=== PATIENT | female | born 1935 | race Caucasian/White ===

== ENCOUNTER 2017-01-09 06:01 | Day surgery (SDC) | payer MEDICARE ==
[~2017-01-09] VITALS: Ht 177.8 cm; Wt 109.5 kg
[~2017-01-09 06:01] MED LIST: ALLO100T PO; FURO20 PO; GABA100C4 PO; MEDR10TA7 PO; PARI1 PO; PRIN5TAB PO; VITA200017 PO; WARF1TAB PO; [UNRECOGNIZED DRUG - CODE] PO
[2017-01-09] MEDS ORDERED: VANCOMYCIN 1000 MG/NS 250 ML IV SCH ×2 (06:30)
[2017-01-09] MEDS ORDERED: LACTATED RINGER'S 1000 ML IV PRN (06:30)
[2017-01-09] MEDS ORDERED: Hold AM Insulin & AM Hypoglycemic medications in diabetic patients PRN (06:30)
[2017-01-09] MEDS ORDERED: NO Heparin, Lovenox, Coumadin at least 12 hours prior to procedure. PRN (06:30)
[2017-01-09] MEDS ORDERED: LORazepam 1 MG TAB SL SCH (06:30)
[2017-01-09] MEDS ORDERED: CHLORHEXIDINE GLUCONATE 2 % 1 PACK (2 CLOTHS) TOPICAL SCH (06:30)
[2017-01-09] MEDS ORDERED: POVIDONE IODINE 5% (ANTISEPSIS KIT) 4 APPLICATIONS EACH NARE SCH (06:30)
[2017-01-09] MEDS ORDERED: POVIDONE IODINE 5% (ANTISEPSIS KIT) 4 APPLICATIONS EACH NARE PRN (06:30)
[2017-01-09] MEDS ORDERED: NS 1000 ML IV SCH (06:30)
[2017-01-09] MEDS ORDERED: MUPIROCIN 2% OINT 1 APPLIC/GM SYR NASAL SCH (06:30)
[2017-01-09] MEDS ORDERED: SODIUM CHLORID 0.9% 500 ML IV PRN (06:30)
[2017-01-09] MEDS ORDERED: CHLORHEXIDINE GLUCONATE 2 % 1 PACK (2 CLOTHS) TOPICAL PRN (06:30)
[2017-01-09] MEDS ORDERED: ceFAZolin 2 GM PREMIX 50 ML IV SCH (06:30)
[2017-01-09] MEDS ORDERED: METOPROLOL TARTRATE 25 MG TAB PO PRN (06:30)
[2017-01-09] MEDS ORDERED: LISI10TA3 PO (06:34)
[2017-01-09] MEDS ORDERED: WARF4TAB52 PO (06:34)
[2017-01-09] MEDS ORDERED: GABA100C4 PO (06:34)
[2017-01-09] MEDS ORDERED: ALLO100T PO (06:34)
[2017-01-09] MEDS ORDERED: PROC20005 SQ (06:34)
[2017-01-09] MEDS ORDERED: FURO20TA PO (06:34)
[2017-01-09 06:39] VITALS: BP 127/52; PULSE 57; RESP 18; TEMP 97.5; O2SAT 95
[2017-01-09 06:55] LABS: AUTOMATED NEUTROPHIL # 3.2 TH/MM3 (1.8-7.7); BASOPHIL % 0.4 % (0.0-2.0); EOSINOPHIL # 0.3 TH/MM3 (0-0.4); EOSINOPHIL % 4.2 % (0.0-4.0); HEMO FLAGS DIFF FINAL; LYMPHOCYTE # 3.4 TH/MM3 (1.0-4.8); MEAN CELL VOLUME 113.7 FL (80.0-100.0); MEAN CORPUSCULAR HEMOGLOBIN 36.7 PG (27.0-34.0); MEAN CORPUSCULAR HGB CONC 32.3 % (32.0-36.0); MONO % 4.8 % (0.0-8.0); NEUT % 43.6 % (16.0-70.0); PLATELET COUNT 157 TH/MM3 (150-450); RED BLOOD COUNT 2.19 MIL/MM3 (4.00-5.30); RED CELL DISTRIBUTION WIDTH 17.6 % (11.6-17.2); WHITE BLOOD COUNT 7.3 TH/MM3 (4.0-11.0)
[2017-01-09 07:09] LABS: BICARBONATE 23.1 MEQ/L (21.0-32.0)
[2017-01-09 07:10] LABS: APTT (PATIENT) 53.9 SEC (24.3-30.1); PROTHROMBIN TIME - PATIENT 34.8 SEC (9.8-11.6)
[2017-01-09] MEDS ORDERED: LIDOCAINE HCL 2% 50 ML VIAL ONE (08:25)
[2017-01-09] MEDS ORDERED: VANCOMYCIN 500 MG VIAL ONE (08:25)
--- NOTE | 2017-01-09 09:08 | PD.CARD ---
PPM GENERATOR REPLACEMENT PROCEDURE DATE: Jan 09, 2017 PPM GENERATOR REPLACEMENT PROC PROCEDURE PERFORMED Permanent pacemaker removal, permanent pacemaker replacement, pocket revision. Ms. Hull is a 81 -year-old female with history of AV block, bradycardia, atrial fibrillation, PPM EOL who undergo generator replacement. The risks, the nature and the benefit of the procedure were clearly stated to her. The risks include pneumothorax, cardiac perforation, stroke and even . The patient understood and agreed to proceed. PROCEDURE After written informed consent was obtained, the patient was brought to the EP lab where was prepped and draped in the sterile fashion. Conscious sedation was initiated using intravenous Versed and introducer intravenous fentanyl. Once sedation was verified, the left infraclavicular area over the generator was anesthetized with 2% Xylocaine. Using a #11 scalpel, a 3 centimeter incision was made over the existing generator. Dissection was then taken down to deep fascial layer using Bovie cautery and blunt dissection. Once exposed, the generator was removed from the pocket. The pocket was expanded. Scar tissue was removed around the leads. Then, the leads were disconnected and tested. At that point, the pocket was copiously irrigated using antibiotic solution. The leads were connected to the new generator and placed into the pocket. The pacemaker was interrogated. I did proceed with wound closure. The deep fascial layer was approximated with 2-0 Vicryl suture in a continuous fashion. The subcutaneous layer was approximated with 2-0 Vicryl suture in a continuous fashion. Dermabond adhesive was applied to the wound followed by a sterile pressure dressing. There was no complication. The patient tolerated procedure. Blood loss minimal. EXPLANTED HARDWARE The explanted permanent pacemaker is a [employer]. Model # 5826 serial number [id number]. For information about the existing leads, please refer to previous dictation. IMPLANTED HARDWARE The implanted permanent pacemaker is a [employer] model number FW3110, serial number [id number]. THRESHOLDS The right atrial pacing threshold in bipolar mode cannot be measured. Patient in atrial fibrillation. Lead impedance 330 ohms and fib wave at 0.8 millivolts. The right ventricular pacing threshold in bipolar mode was 1.2 volts at 0.5 milliseconds. Lead impedance 580 ohms. R wave at 1.2mv SETTINGS The device is set in a DDD6. Upper limit 120 beats per minute. Hysteresis and mode switch are on. CONCLUSIONS Successful permanent pacemaker removal, permanent pacemaker implantation, pocket revision. COMMENT AND RECOMMENDATIONS The patient will be transferred to the telemetry unit. He will be observed. The patient will be discharged home later on today. Esa Yan MD Jan 09, 2017 09:08
[2017-01-09] MEDS ORDERED: ACET1TAB94 PO (09:12)
[2017-01-09] MEDS ORDERED: CEPH-460 PO ×2 (09:12→09:24)
--- NOTE | 2017-01-09 09:13 | CATHPROC ---
[employer] HIS Report Study Information Study Number Admission Scheduled Start Study Start [id number] Jan 09 2017 6:01AM 01/09/2017 Jan 09 2017 8:38AM [place] [facility] Cardiac Pacer/ICD Admit Source Facility Department Other [facility] - Stable Cleaner Physician and Clinical Staff Initial Esa Young Him Assistant Lobo Sheehan,IKER Other Anesthesia, MORTGAGE ASSISTANT Recorder Jazz Saavedra,IKER Scrub Giuliano Hollins RCIS(BS) Equipment Time Talent Engineer Description Size Mfg Part Number Used/Scraped DERMABOND, ADHESIVE SKIN [id number] 08:42 CORDIS/PACER * Used GLUE MINI *[id number] 08:42 MEDLINE IND[employer]ES SUTURE, STRIP PLUS 1/2" * Used *[id number] 08:42 MEDLINE PACER CARDOSO, LIMB * 2530 *[id number] Used [id number] 08:42 MEDLINE PACER PACK, PACER CUSTOM * Used *[id number] 08:55 Needle Sponge Count 2 2 Used 08:55 Needle Sponge Count 2 22 Used 08:55 Needle Sponge Count 20 200 Used SUTURE, 0 ETHIBOND [CT1] (CX21D), 8pk SUTURE, 2-0 VICRYL [CT1] (MEO001X) SUTURE, 2-0 VICRYL [CT1] ([id number]) [id number] 08:42 [employer],WARM AIR CCL * Used *[id number] 09:01 [facility] [employer] PACEMAKER, ASSURITY DR CHAPPELL DDDR [id number] Used [facility] PAD, ELECTROSURGICAL 08:42 * [id number] *[id number] Used [employer]OUND[employer] ORANGE [id number] 08:42 [employer]. / * Used *[id number] Equipment Model, Serial, Lot Number and Expiration Data Description Model Number Serial Number Lot Number Expiration Date PACEMAKER, ASSURITY DR CHAPPELL [id number] 06-10-2018 History: Allergies Allergy Reaction adhesive Rash Labs Hgb (g/dl) Hct (%) WBC (l/cumm) Platelets (thousands) 11.60-17.00 35.00-51.00 4.00-11.00 150.00-450.00 8.1 25 7.3 157 Glucose (mg/dl) BUN (mg/dl) Creatinine (mg/dl) BUN:Creatinine (1:x) 74.00-106.00 7.00-18.00 0.50-1.30 10.00-20.00 114 86 3.8 22.6 Na (meq/l) K (meq/l) 136.00-145.00 3.50-5.10 144 4 INR (PTT:PT) 0.90-1.10 3 CPK-MB (ng/ML) 0.50-3.60 Not Drawn Medication Medication Total Dose (Bolus/Oral) Medication Total Dosage/Unit 2% XYLOCAINE 50 mL Medications (Bolus/Oral) Medication Time Given Dosage/Unit Administered By Reason 2% XYLOCAINE 01/09/2017 8:55:59 AM 50 mL Esa Yan 50 mL 2% XYLOCAINE given in lab by Esa Yan in Left shoulder via Subcutaneous. Ordered by Esa Yan. left upper chest Medication (Drip) Medication Time Given Dosage/Unit Concentration/Unit Diluent (ml) Solution ANCEF 01/09/2017 8:32:45 AM 2 g 2 g ANCEF given in lab by Anesthesia, MORTGAGE ASSISTANT in Right Hand via Peripheral IV. Ordered by Esa Yan. VANCOMYCIN DRIP 01/09/2017 8:32:17 AM 1 g 1 g VANCOMYCIN DRIP given in lab by Anesthesia, MORTGAGE ASSISTANT in Right Hand via Peripheral IV. Ordered by Esa Lopez. Initial Case Assessment Cardiovascular HR Rhythm NIBP Chest Pain 57 sr 127/52 0 Edema Present Skin color Skin None Normal Warm Dry Circulatory - Right Pulses Dorsalis Pedis 1 Scale (0,1,2,3,4,d) Circulatory - Left Pulses Dorsalis Pedis 1 Scale (0,1,2,3,4,d) Neurological State Oriented to time-place- Alert Moves all extremities person Respiration - General Respiration Rate SpO2 (%) (B/min) 20 95 Final Case Assessment Cardiovascular HR Rhythm NIBP Chest Pain 69 PACED 90/50 0 Edema Present Skin color Skin None Normal Warm Dry Circulatory - Right Pulses Dorsalis Pedis 1 Scale (0,1,2,3,4,d) Circulatory - Left Pulses Dorsalis Pedis 1 Scale (0,1,2,3,4,d) Neurological State Oriented to time-place- Alert Moves all extremities person Respiration - General Respiration Rate SpO2 (%) O2 (lpm) (B/min) 18 98 4 Chronological Log Time Study Chronological Log 8:20:00 Patient arrived via Bed. 8:20:00 Patient Name, D.O.B, / Armband Verified By R.N. 8:25:00 Anesthesia at bedside. Assumes care of patient. See records for all meds and vitals during procedure 8:32:17 1 g VANCOMYCIN DRIP given in lab by Anesthesia, MORTGAGE ASSISTANT in Right Hand via Peripheral IV. Order ed by Esa Yan. 8:32:45 2 g ANCEF given in lab by Anesthesia, MORTGAGE ASSISTANT in Right Hand via Peripheral IV. Ordered by Esa Lopez. 8:38:43 Verbal Stimulation=2 Physical Stimulation=2 Airway=2 Respiration=2 TOTAL=8. (0=absent, 1=li mited, 2=present) 8:42:42 Patient has been NPO for More than 6Hrs. 8:42:44 Skin Breakdown- right hip wound covered with dressing, dressing clean dry and intact. right have bruise 8:43:22 Patient Warmer Placed on the Table. 8:43:23 Disposable Defibrillator Pads Placed On Patient. 8:43:24 Bimal Prominences Protected 8:43:24 IV Warmer Connected To Patient. 8:43:25 A # 20 IV was noted in the Antecubital (right). Grade = 0 8:43:36 A # 20 IV was noted in the Hand (right). Grade = 0 8:44:26 History and physical on the chart or being dictated. Assessment: Initial Case, HR=57 BPM, Rhythm=sr, OKSM=431/52 mmhg, Chest Pain=0, Edema=None, [place] r=Normal, Skin = Warm, Dry Right Pulses: Marcos Ped=1 8:44:27 Left Pulses: Marcos Ped=1 Neurological: State=Alert, Ox3, SEAY Respiration: Resp=20 B/min, SpO2=95 % First Sponge And Instrument Count Done by Giuliano Hollins RCIS(BS). 8:45:25 Hypo's: 2, Sponges: 20, Bovie/scratch: 2 Sutures: 10, Blades: 3, Instruments: 26, Syveck Patches: ~SYVECK PATCH~ verrifed by Lobo Man 8:45:25 2% CHLORHEXIDINE GLUCONATE WASH AND NASAL SWIPE DONE PRIOR TO PROCEDURE. 8:45:55 Bovie ground pad applied to: left thigh 8:47:38 Reference ECG taken 8:47:56 Table restraints applied according to hospital policy 8:47:58 Left Upper Chest Prepped Times Two. Time Out. Correct patient, procedure, procedure equipment, site and side verified with physician present. Time 8:54:08 concurred by MD, individual staff and MORTGAGE ASSISTANT. Time Out #2 - Consents verified, patient in correct position, all results are labled and display ed, safety precautions 8:54:09 taken, antibiotics administered. Time out concurred by MD, individual staff and MORTGAGE ASSISTANT in procedur e 8:55:20 Case Start 50 mL 2% XYLOCAINE given in lab by Esa Yan in Left shoulder via Subcutaneous. Ordered by Esa Velazquez. left 8:55:59 upper chest 8:56:10 Surgical Incision Made. 8:56:59 A pocket was created at the L Upper Chest. 8:57:10 A device was explanted. 8:58:10 A PACEMAKER, DAVID CARDONA RF DDDR was connected and placed in the pocket. 9:00:22 Implant Procedure was performed. 9:00:31 A PPM Implant . (Dual) GEN CHANGE 9:02:01 Pocket flushed with antibiotic solution SECOND Sponge And Instrument Count Done by Giuliano Hollins RCIS(BS). 9:02:30 Hypo's: 2, Sponges: 20, Bovie/scratch: 2 Sutures: 10, Blades: 3, Instruments: 26, Syveck Patches: ~SYVECK PATCH~ verrifed by Lobo Man 9:02:53 The pocket was closed. 9:02:56 Case End 9:03:45 DOCU called. Spoke to JU 9:04:22 Steri-strips and a sterile dressing applied to site. 9:04:28 Bedside Report will be given. 9:04:37 Sterile dressing applied to site Assessment: Final Case, HR=69 BPM, Rhythm=PACED, NIBP=90/50 mmhg, Chest Pain=0, Edema=None, Color=Normal, Skin = Warm, Dry Right Pulses: Marcos Ped=1 9:04:43 Left Pulses: Marcos Ped=1 Neurological: State=Alert, Ox3, SEAY Respiration: Resp=18 B/min, SpO2=98 %, O2=4 lpm FINAL Sponge And Instrument Count Done by Giuliano Hollins RCIS(BS). 9:06:55 Hypo's: 2, Sponges: 20, Bovie/scratch: 2 Sutures: 10, Blades: 3, Instruments: 26, Syveck Patches: ~SYVECK PATCH~ verrifed by Lobo Man 9:07:14 Defibrillator and ground pads removed. Skin intact. 9:07:15 Patient moved to stretcher End Study - Contrast Media Used In Study Contrast Total Opened (mL) Total Used (mL) Total Wasted (mL) Unspecified 0 0 0 End Study - Maximum Contrast Load Max Contrast Load (mL) 143.4 End Study - Radiation Exposure Fluoro Time (minutes) 0.0 End Study - Patient Disposition Complications Transferred To Interventional Outcome No Telemetry Bed successful
[2017-01-09] MEDS ORDERED: SODIUM CHLORIDE 0.9% FLUSH 10 ML FLUSH IV FLUSH PRN (09:15)
[2017-01-09] MEDS ORDERED: ACETAMINOPHEN/CODEINE 300 MG/30 MG TAB PO PRN ×2 (09:15)
[2017-01-09] MEDS ORDERED: ONDANSETRON HCL 4 MG/2 ML VIAL IV PUSH PRN (09:15)
[2017-01-09] MEDS ORDERED: NORC5TAB PO (09:24)
[2017-01-09] MEDS ORDERED: DO NOT ADM ANY ANTICOAGULANT DRUGS PRN (10:30)
--- NOTE | 2017-01-09 12:50 | EKG ---
Date Performed: 01/09/2017 Time Performed: 10:07:26 PTAGE: 81 years EKG: Unclear underlying rhythm left bundle branch block versus ventricular pacemaker. In compari son, rhythm cannot be accurately compared. PREVIOUS TRACING : 01/09/2017 07.05 DOCTOR: Howard Bhatt Interpretating Date/Time 01/09/2017 12:49:35
--- NOTE | 2017-01-09 13:32 | EKG ---
Date Performed: 01/09/2017 Time Performed: 07:05:48 PTAGE: 81 years EKG: Sinus bradycardia with borderline 1st degree A-V block. Left bundle branch block Abnormal E CG Compared to prior electrocardiogram, rate has decreased PREVIOUS TRACING : 06/09/2013 10.12 DOCTOR: Howard Bhatt Interpretating Date/Time 01/09/2017 13:31:20
[2017-01-09] MEDS ORDERED: SODIUM CHLORIDE 0.9% FLUSH 10 ML FLUSH IV FLUSH SCH (21:00)
== END 2017-01-09 11:30 | disposition home or self-care (01) ==
LOC: HDOC 06:01 → HDIC 06:01 → HDOC 11:30
PROVIDERS: ATTEND Internal Medicine Interventional Cardiology
DX: Z45.010 Encounter for checking and testing of cardiac pacemaker pulse generator [battery] (principal); I49.5 Sick sinus syndrome; I10 Essential (primary) hypertension; I48.91 Unspecified atrial fibrillation; I44.4 Left anterior fascicular block; R53.83 Other fatigue; R06.09 Other forms of dyspnea
CPT/HCPCS: 00400; 33228; 80048; 85025; 85610; 85730; 86850; 86900; 86901; 93005; C1785; J0690; J3370; J7030; J7050